=== PATIENT | female | born 1955 | race Caucasian/White ===

== ENCOUNTER 2024-04-02 13:41 | Emergency (ER) | payer MEDICARE, SELFPAY ==
[2024-04-02] MEDS ORDERED: Bacitracin 1 PK ONE (14:01)
== END 2024-04-02 14:09 | disposition home or self-care (01) ==
LOC: BURERS 13:41
DX: I10 Essential (primary) hypertension (principal); I83.92 Asymptomatic varicose veins of left lower extremity
CPT/HCPCS: 99283